=== PATIENT | male | born 1995 | race Hispanic/Latino ===

== ENCOUNTER → 2021-02-27 | Outpatient (CLI) | payer OTHER ==
[~2021-02-27] MED LIST: IOHEXOL-350 50ML VIAL IV ONE
== END | disposition home or self-care (01) ==
LOC: RAH 11:23
PROVIDERS: ATTEND Otolaryngology
DX: Q18.0 Sinus, fistula and cyst of branchial cleft (principal)
CPT/HCPCS: 70491; Q9967